=== PATIENT | female | born 1985 | race Caucasian/White ===

== ENCOUNTER 2018-03-19 15:24 | Emergency (ER) | payer OTHER ==
[~2018-03-19] VITALS: Ht 152.4 cm; Wt 90.7 kg
[~2018-03-19 15:24] MED LIST: ALBU90OI61 INH; AMOX500 PO; ARIP10 PO; ASPI325EC PO; AZIT250 PO; Bactrim Ds Tab1 EACH PO; CEPH500 PO; CIPR500 PO; CLIN150 PO; Cleocin HCl150 MG PO; Cleocin HCl300 MG PO; EXPECTA LIPIL PO; EXPECTA PRENAT1 EACH; FOLI1; FOLI1 PO; FOLI400 PO; GLYB2.5; HYDACE5 PO; IBUP600 PO; IBUP800 PO; IMPLANON; IRON150C PO; MEDR150I IM; MULVITMIND PO; NAPR375 PO; NAPR500 PO; NEOPOLHCSU OT; NEOPOLHYDS OT; Naprosyn375 MG PO; Naprosyn500 MG PO; OLAN5 PO; OXYACE5T PO; OXYC5 PO; PENVK500 PO; PERM5TC TOP; PREN-16 PO; PROM25 PO; Prilosec Otc20 MG; RXOXYACE PO; SULTRIDS PO; Seroquel300 MG PO; TRAM50 PO; TYLENOL PRN
[2018-03-19] MEDS ORDERED: NAPR550 PO (15:44)
[2018-03-19] MEDS ORDERED: Cleocin HCl300 MG PO (15:44)
== END 2018-03-19 16:06 | disposition home or self-care (01) ==
LOC: ER 15:24
DX: K02.9 Dental caries, unspecified (principal); Z88.0 Allergy status to penicillin; Z88.5 Allergy status to narcotic agent; Z87.891 Personal history of nicotine dependence
CPT/HCPCS: 64400; 99282-25

== ENCOUNTER 2018-09-04 11:15 | Emergency (ER) | payer OTHER ==
[~2018-09-04] VITALS: Ht 152.4 cm; Wt 99.8 kg
[~2018-09-04 11:15] MED LIST changes: +NAPR550 PO
[2018-09-04] MEDS ORDERED: IBUP600 PO (11:53)
[2018-09-04] MEDS ORDERED: Cleocin HCl300 MG PO (11:53)
[2018-09-05] MEDS ORDERED: Zithromax250 MG PO (11:15)
[2018-09-05] MEDS ORDERED: Cheratussin AC118 ML PO (11:15)
[2018-09-05] MEDS ORDERED: Prednisone20 MG PO (11:15)
== END 2018-09-04 11:55 | disposition home or self-care (01) ==
LOC: ER 11:15
DX: J02.9 Acute pharyngitis, unspecified (principal); Z88.0 Allergy status to penicillin; Z88.5 Allergy status to narcotic agent; Z87.891 Personal history of nicotine dependence
CPT/HCPCS: 99282

== ENCOUNTER 2018-09-05 09:54 | Emergency (ER) | payer OTHER ==
[~2018-09-05] VITALS: Ht 157.5 cm; Wt 99.8 kg
[2018-09-05] MEDS ORDERED: Zithromax250 MG PO (11:15)
[2018-09-05] MEDS ORDERED: Prednisone20 MG PO (11:15)
[2018-09-05] MEDS ORDERED: Cheratussin AC118 ML PO (11:15)
== END 2018-09-05 12:00 | disposition home or self-care (01) ==
LOC: ER 09:54
DX: J18.1 Lobar pneumonia, unspecified organism (principal); Z88.0 Allergy status to penicillin; Z88.5 Allergy status to narcotic agent; Z87.891 Personal history of nicotine dependence
CPT/HCPCS: 71046; 87081; 87430; 96372; 99283-25; J0696; J1100

== ENCOUNTER 2019-03-02 09:26 | Emergency (ER) | payer OTHER ==
[~2019-03-02] VITALS: Ht 152.4 cm; Wt 99.8 kg
[~2019-03-02 09:26] MED LIST changes: +Cheratussin AC118 ML PO; +Prednisone20 MG PO; +Zithromax250 MG PO
[2019-03-02] MEDS ORDERED: CEFP200 PO (10:09)
[2019-03-02] MEDS ORDERED: IBUP800 PO (10:09)
[2019-03-03] MEDS ORDERED: NEOPOLHCSU RIGHTEAR (09:08)
[2019-03-03] MEDS ORDERED: IBUP800 PO (09:08)
== END 2019-03-02 10:38 | disposition home or self-care (01) ==
LOC: ER 09:26
DX: H66.91 Otitis media, unspecified, right ear (principal); Z88.0 Allergy status to penicillin; Z88.5 Allergy status to narcotic agent; Z87.891 Personal history of nicotine dependence
CPT/HCPCS: 99282

== ENCOUNTER 2019-03-03 08:28 | Emergency (ER) | payer OTHER ==
[~2019-03-03] VITALS: Ht 152.4 cm; Wt 99.8 kg
[~2019-03-03 08:28] MED LIST changes: +CEFP200 PO
[2019-03-03] MEDS ORDERED: NEOPOLHCSU RIGHTEAR (09:08)
[2019-03-03] MEDS ORDERED: IBUP800 PO (09:08)
[2019-03-04] MEDS ORDERED: Cortisporin Ear10 M1 (21:56)
[2019-03-04] MEDS ORDERED: CEFP200 PO (21:57)
[2019-03-04] MEDS ORDERED: CIPRO500 MG PO (22:23)
[2019-03-04] MEDS ORDERED: Norco 5-325 Ta1 EACH PO (22:23)
== END 2019-03-03 09:23 | disposition home or self-care (01) ==
LOC: ER 08:28
DX: H60.91 Unspecified otitis externa, right ear (principal); H66.91 Otitis media, unspecified, right ear; Z88.0 Allergy status to penicillin; Z88.6 Allergy status to analgesic agent; Z79.899 Other long term (current) drug therapy; Z86.19 Personal history of other infectious and parasitic diseases; Z87.891 Personal history of nicotine dependence
CPT/HCPCS: 99282

== ENCOUNTER 2019-03-04 20:15 | Emergency (ER) | payer OTHER ==
[~2019-03-04] VITALS: Ht 152.4 cm; Wt 102.1 kg
[~2019-03-04 20:15] MED LIST changes: +NEOPOLHCSU RIGHTEAR
[2019-03-04] MEDS ORDERED: Cortisporin Ear10 M1 (21:56)
[2019-03-04] MEDS ORDERED: CEFP200 PO (21:57)
[2019-03-04] MEDS ORDERED: CIPRO500 MG PO (22:23)
[2019-03-04] MEDS ORDERED: Norco 5-325 Ta1 EACH PO (22:23)
== END 2019-03-04 22:29 | disposition home or self-care (01) ==
LOC: ER 20:15
DX: H60.91 Unspecified otitis externa, right ear (principal); Z88.0 Allergy status to penicillin; Z88.5 Allergy status to narcotic agent; Z87.891 Personal history of nicotine dependence
CPT/HCPCS: 99282

== ENCOUNTER 2019-08-20 14:47 | Emergency (ER) | payer OTHER ==
[~2019-08-20] VITALS: Ht 152.4 cm; Wt 104.3 kg
[~2019-08-20 14:47] MED LIST changes: +CIPRO500 MG PO; +Cortisporin Ear10 M1; +Norco 5-325 Ta1 EACH PO
[2019-08-20 15:03] LABS: Source, Urine Clean Catch
[2019-08-20 15:09] LABS: Blood, Urine 5+ (Neg); Glucose Qualitative, Urine Neg (Neg); Ketones, Urine 1+ (Neg); Leukocyte Esterase, Urine 1+ (Neg); Nitrite, Urine Neg (Neg); Protein, Urine 2+ (Neg); Specific Gravity, Urine 1.025 (1.003-1.022); Urobilinogen, Urine 1+ (Normal)
[2019-08-20 15:10] LABS: Appearance, Urine Hazy (Clear); Bilirubin, Urine 1+ (Neg); Color, Urine Orange (P-Yellow)
[2019-08-20 15:14] LABS: Amorphous Light (0-Heavy); Bacteria Many /hpf; Calcium Oxalate Crystals Few /hpf; Mucus Mod (0-Heavy); Squamous Epithelial Cells Mod /hpf (Few)
[2019-08-20] MEDS ORDERED: Bactrim Ds Tab1 EACH PO (15:40)
[2019-08-20] MEDS ORDERED: Pyridium200 MG PO (15:41)
== END 2019-08-20 15:49 | disposition home or self-care (01) ==
LOC: ER 14:47
PROVIDERS: Emergency Medicine
DX: N39.0 Urinary tract infection, site not specified (principal); Z88.0 Allergy status to penicillin; Z88.5 Allergy status to narcotic agent; Z87.891 Personal history of nicotine dependence; Z88.1 Allergy status to other antibiotic agents
CPT/HCPCS: 81001; 87086; 99283

== ENCOUNTER → 2019-08-29 | Outpatient (CLI) | payer OTHER ==
[~2019-08-29] MED LIST changes: +Pyridium200 MG PO
== END | disposition home or self-care (01) ==
LOC: LAB UCHC 13:30 → LAB SHORT 13:30
DX: N39.0 Urinary tract infection, site not specified (principal)
CPT/HCPCS: 87086

== ENCOUNTER → 2019-09-21 | Outpatient (CLI) | payer OTHER | END | disposition home or self-care (01) | LOC: LAB SHORT 11:17 → LAB 11:17 | DX: N89.8 Other specified noninflammatory disorders of vagina (principal) | CPT/HCPCS: 87070; 87205 ==

== ENCOUNTER 2020-09-10 06:47 | Day surgery (SDC) | payer OTHER ==
[~2020-09-10] VITALS: Ht 152.4 cm; Wt 108.9 kg
[~2020-09-10 06:47] MED LIST changes: +MAVYRET 100-401 EAC1
== END 2020-09-10 09:05 | disposition home or self-care (01) ==
LOC: ORSCSDS 06:47
PROVIDERS: Orthopaedic Surgery
PROC: 01N50ZZ Release Median Nerve, Open Approach (ICD-10-PCS; principal; 2020-09-10 08:00)
DX: G56.01 Carpal tunnel syndrome, right upper limb (principal); B19.20 Unspecified viral hepatitis C without hepatic coma; E66.01 Morbid (severe) obesity due to excess calories; Z68.42 Body mass index [BMI] 45.0-49.9, adult
CPT/HCPCS: J2250; J2704; J7120

== ENCOUNTER 2021-02-11 08:11 | Day surgery (SDC) | payer OTHER ==
[~2021-02-11] VITALS: Ht 152.4 cm; Wt 112.1 kg
--- NOTE | 2021-02-11 10:02 | NUR ---
02/11/21 Jessy Azevedo PT RESTING ON RECLINER. PT DENIES ANY PAIN. VS WNL. WILL CONTINUE TO MONITOR. PT TOLERATING SNACKS
== END 2021-02-11 10:20 | disposition home or self-care (01) ==
LOC: ORSCSDS 08:11
PROVIDERS: Orthopaedic Surgery
PROC: 01N50ZZ Release Median Nerve, Open Approach (ICD-10-PCS; principal; 2021-02-11 09:30)
DX: G56.02 Carpal tunnel syndrome, left upper limb (principal); E66.9 Obesity, unspecified; Z68.42 Body mass index [BMI] 45.0-49.9, adult; Z87.891 Personal history of nicotine dependence
CPT/HCPCS: J2250; J2704; J3010

== ENCOUNTER → 2021-08-21 | Outpatient (CLI) | payer OTHER | END | disposition home or self-care (01) | LOC: LAB 10:40 → LAB SHORT 10:40 | DX: N39.0 Urinary tract infection, site not specified (principal) | CPT/HCPCS: 87086 ==

== ENCOUNTER → 2021-08-27 | Outpatient (CLI) | payer OTHER ==
[2021-08-28 10:28] LABS: Candida species (DNA Probe) Negative (NEGATIVE); G. vaginalis (DNA Probe) Negative (NEGATIVE); T. vaginalis (DNA Probe) Negative (NEGATIVE)
[2021-08-30 11:11] LABS: CHLAMYDIA TRACHOMATIS, NAA Negative (Negative)
== END | disposition home or self-care (01) ==
LOC: LAB SHORT 16:10 → LAB 16:10
PROVIDERS: Family Medicine
DX: Z00.00 Encounter for general adult medical examination without abnormal findings (principal)
CPT/HCPCS: 87480; 87510; 87660

== ENCOUNTER 2021-10-06 17:23 | Emergency (ER) | payer OTHER ==
[~2021-10-06] VITALS: Ht 152.4 cm; Wt 90.7 kg
[2021-10-06] MEDS ORDERED: LOMAIRA8 MG PO (18:32)
[2021-10-06 19:02] LABS: BASOPHILS ABSOLUTE AUTO 0.03 K/mm3 (0.00-0.23); BASOPHILS PERCENT AUTO 0 % (0-2); EOSINOPHILS ABSOLUTE AUTO 0.18 K/mm3 (0.00-0.68); EOSINOPHILS PERCENT AUTO 2 % (0-6); Hemoglobin 10.7 g/dL (11.5-16.0); IMMATURE GRAN ABSOLUTE AUTO 0.02 K/mm3 (0.00-0.10); IMMATURE GRAN PERCENT AUTO 0 % (0-1); LYMPHOCYTES ABSOLUTE AUTO 2.29 K/mm3 (0.84-5.20); LYMPHOCYTES PERCENT AUTO 28 % (21-46); MONOCYTES ABSOLUTE AUTO 0.82 K/mm3 (0.16-1.47); MONOCYTES PERCENT AUTO 10 % (4-13); Mean Corpuscular HGB 26.3 pg (26.0-34.0); Mean Corpuscular HGB Conc 31.5 g/dL (31.5-36.5); Mean Corpuscular Volume 84 fL (80-100); Mean Platelet Volume 11.1 fL (9.1-12.4); NEUTROPHILS ABSOLUTE AUTO 4.98 K/mm3 (1.96-9.15); NEUTROPHILS PERCENT AUTO 60 % (41-73); Platelet Count 275 K/mm3 (150-400); RDW Coefficient Variation 15.8 % (11.7-14.2); RDW Standard Deviation 47.3 fL (35.1-46.3); Red Blood Cell Count 4.07 M/mm3 (3.80-5.20); White Blood Cell Count 8.32 K/mm3 (4.00-11.30)
[2021-10-06 19:22] LABS: Albumin, Blood 3.1 g/dL (3.4-5.0); Albumin/Globulin Ratio 0.8 (0.8-1.8); Bilirubin, Total 0.4 mg/dL (0.1-1.0); Bun/Creatinine Ratio 11.9 (12.0-20.0); Calcium, Blood 8.7 mg/dL (8.5-10.1); Creatinine, Blood 0.67 mg/dL (0.40-1.00); Globulin, Blood 3.9 g/dL (2.2-4.0); Potassium, Blood 3.1 mmol/L (3.5-5.5)
[2021-10-06] MEDS ORDERED: Lasix20 MG PO (21:09)
[2021-10-06] MEDS ORDERED: K-Dur20 MEQ PO (21:09)
== END 2021-10-06 21:22 | disposition home or self-care (01) ==
LOC: ER 17:23
PROVIDERS: Physician Assistant
DX: R60.0 Localized edema (principal); Z88.0 Allergy status to penicillin; Z88.5 Allergy status to narcotic agent; Z87.891 Personal history of nicotine dependence; Z79.899 Other long term (current) drug therapy
CPT/HCPCS: 36415; 71046; 80053; 83690; 83880; 84484; 85025; 93005; 93010; 99284-25

== ENCOUNTER 2021-10-17 12:25 | Day surgery (SDC) | payer OTHER ==
[~2021-10-17] VITALS: Ht 152.4 cm; Wt 95.3 kg
[~2021-10-17 12:25] MED LIST changes: +K-Dur20 MEQ PO; +LOMAIRA8 MG PO; +Lasix20 MG PO
== END 2021-10-17 15:28 | disposition home or self-care (01) ==
LOC: ORSCSDS 12:25
PROVIDERS: Internal Medicine Gastroenterology
PROC: 0DJD8ZZ Inspection of Lower Intestinal Tract, Via Natural or Artificial Opening Endoscopic (ICD-10-PCS; principal; 2021-10-17 13:30)
DX: K62.5 Hemorrhage of anus and rectum (principal); R10.9 Unspecified abdominal pain; K64.8 Other hemorrhoids; B19.20 Unspecified viral hepatitis C without hepatic coma; I38 Endocarditis, valve unspecified; E66.01 Morbid (severe) obesity due to excess calories; Z68.41 Body mass index [BMI] 40.0-44.9, adult
CPT/HCPCS: J2704